=== PATIENT | female | born 2000 | race Caucasian/White ===

== ENCOUNTER 2024-07-18 00:05 | Inpatient (IN) ==
[2024-07-18 00:23] VITALS: BMI 36.6
[2024-07-18 00:42] LABS: BILIRUBIN,URINE NEGATIVE (NEGATIVE); BLOOD/HEMOGLOBIN,URINE 1+ (NEGATIVE); GLUCOSE, URINE NEGATIVE (NEGATIVE); KETONES,URINE NEGATIVE (NEGATIVE); LEUKOCYTE ESTERASE ,URINE NEGATIVE (NEGATIVE); NITRITES,URINE NEGATIVE (NEGATIVE); PH,URINE 6.5 (5.0 - 8.0); PROTEIN,URINE 3+ (NEGATIVE); UROBILINOGEN,URINE NORMAL (NORMAL)
[2024-07-18 00:49] LABS: APPEARANCE,URINE CLEAR (CLEAR); COLOR,URINE STRAW (YELLOW)
[2024-07-18 00:50] LABS: BACTERIA,URINE NEGATIVE /HPF (NEGATIVE); RBC,URINE 0-2 /HPF (0-3); SQUAMOUS EPITHELIAL CELL,UR RARE /HPF (NEGATIVE)
[2024-07-18 00:52] LABS: AMNISURE ROM TEST THERE IS A RUPTURE (NO RUPTURE)
[2024-07-18 01:22] LABS: BASOPHILS % (AUTO) 0.4 % (0.2-1.0); EOSINOPHILS # (AUTO) 0.1 x10^3/uL (0.0-0.2); EOSINOPHILS % (AUTO) 0.7 % (0.9-2.9); HEMATOCRIT 33.1 % (36.0-47.0); LYMPHOCYTES % (AUTO) 15.7 % (21.0-51.0); MEAN CORPUSCULAR HEMOGLOBIN 26.8 pg (27.0-34.0); MEAN CORPUSCULAR HGB CONC 33.3 g/dL (33.0-35.0); MEAN CORPUSCULAR VOLUME 80.5 fL (80.0-100.0); MEAN PLATELET VOLUME 9.4 fL (7.4-11.0); MONOCYTES # (AUTO) 0.7 x10^3/uL (0.3-0.8); MONOCYTES % (AUTO) 5.8 % (0.0-13.0); NEUTROPHILS # (AUTO) 9.8 x10^3/uL (2.2-4.8); NEUTROPHILS % (AUTO) 77.4 % (42.0-75.0); PLATELET COUNT 161 X10^3/uL (150.0-450.0); RED BLOOD COUNT 4.11 X10^6/uL (3.5-5.4); RED CELL DISTRIBUTION WIDTH 16.3 % (11.6-16.5); WHITE BLOOD COUNT 12.6 X10^3/uL (3.6-10.0)
[2024-07-18 01:37] LABS: ALANINE AMINOTRANSFERASE 7 Units/L (12-78); ALBUMIN 2.6 g/dL (3.4-5.0); ALKALINE PHOSPHATASE 151 Units/L (46-116); ASPARTATE AMINO TRANSFERASE 11 Units/L (15-37); BLOOD UREA NITROGEN 6 mg/dL (7-18); CALCIUM 9.1 mg/dL (8.5-10.1); CARBON DIOXIDE 23.6 mmol/L (21-32); CHLORIDE 104 mmol/L (98-107); COR CA(FOR HYPOALB) 10.2 mg/dL (8.5-10.1); CREATININE 0.68 mg/dL (0.55-1.02); GLUCOSE 95 mg/dL (65-99); POTASSIUM 3.6 mmol/L (3.5-5.1); SODIUM 137 mmol/L (136-145); TOTAL PROTEIN 6.7 g/dL (6.4-8.2); eGFR NON BLACK RACES > 60 (>60)
[2024-07-18] MEDS ORDERED: NUBAIN INJ 20 MG AMP IVP PRN (01:58)
[2024-07-18] MEDS ORDERED: REGLAN INJ 10 MG VIAL IVP PRN ×3 (01:58→10:20)
[2024-07-18] MEDS: AMPICILLIN VIAL 2 GRAM 2 G in NS 100 ML IV + SPIKE MINIBAG* 100 ML IV SCH (02:00)
[2024-07-18] MEDS: LR 1,000 ML IV 1,000 ML IV ONE ×3 (02:00→07:58)
[2024-07-18] MEDS: D5 1/2 NS 1,000 ML 1,000 ML IV SCH (02:00)
[2024-07-18] MEDS: NS 100 ML IV 100 ML ONE ×3 (02:00→18:49)
[2024-07-18] MEDS: NUBAIN INJ 10 MG AMP ONE (02:11)
[2024-07-18] MEDS: OXYTOCIN 20 UNIT/1,000 ML-NS 20 UNIT/1,000 ML PLAST..BAG IV PRN (02:15)
[2024-07-18 02:43] LABS: INR 1.07 (0.8-1.3)
[2024-07-18 02:50] LABS: URIC ACID 4.9 mg/dL (2.6-6.0)
[2024-07-18] MEDS: FENTANYL VIAL INJ 100 mcg ONE (02:55)
[2024-07-18] MEDS: AMPICILLIN VIAL 2 GRAM ONE (03:00)
[2024-07-18] MEDS: NAROPIN EPIDURAL 0.2% 100 ML ONE (03:01)
[2024-07-18] MEDS: D5 1/2 NS 1,000 ML 1,000 ML IV ONE (03:55)
[2024-07-18] MEDS: ZOFRAN INJ 4 MG VIAL IVP PRN (04:41)
[2024-07-18] MEDS: AMPICILLIN VIAL 1 GRAM 1 G in NS 50 ML IV + SPIKE MINIBAG* 50 ML IV SCH (06:30)
--- NOTE | 2024-07-18 07:23 | DR.OB ---
OB QUICK NOTE Assessment/Plan (1) Active labor at term: Assessment/Plan: L&D 07/18/24 Pitocin=20mu/min. Ampicillin S-No complaint. s/p epidural. O-Afebrile,VSS RGP=357 with poor LTV, +accel, occasional late decel. Some severe variables. CTX=q 1 1/2 min., about 25-45mmHg CVX=3cm/50%/-2/VTX (no change in 7 hours) A-IUP at 38 5/7 weeks with failure to dilate SROM PIH +GBS P-To C/S
[2024-07-18] MEDS: REGLAN INJ 10 MG VIAL ONE (07:34)
[2024-07-18] MEDS: ANCEF VIAL 1 GRAM ONE (07:58)
[2024-07-18] MEDS: LIDOCAINE 2%-EPI 1:200,000 ONE (07:58)
[2024-07-18] MEDS: PEPCID 20 MG VIAL ONE (07:58)
[2024-07-18] MEDS: DIPRIVAN VIAL 20 ML ONE (07:58)
[2024-07-18] MEDS ORDERED: DILAUDID INJ IVP PRN (08:20)
[2024-07-18] MEDS ORDERED: ZOFRAN INJ 4 MG VIAL IVP PRN ×2 (08:20→10:20)
[2024-07-18] MEDS ORDERED: BENADRYL INJ 50 MG VIAL IVP PRN ×2 (08:20→10:20)
[2024-07-18] MEDS ORDERED: BARHEMSYS INJ IVP PRN (08:20)
[2024-07-18] MEDS: PITOCIN IVP ONE (08:26)
[2024-07-18] MEDS: PITOCIN ONE (09:04)
[2024-07-18] MEDS: AMPICILLIN VIAL 1 GRAM ONE (09:05)
[2024-07-18] MEDS: ZOFRAN INJ 4 MG VIAL ONE ×2 (09:06→18:50)
[2024-07-18] MEDS ORDERED: NARCAN INJ IVP PRN (10:20)
[2024-07-18] MEDS: MYLICON TAB 80 MG CHEW PO PRN (10:55)
[2024-07-18] MEDS: PERCOCET TAB 5/325 MG PO PRN ×2 (10:55→17:13)
[2024-07-18] MEDS ORDERED: AMPICILLIN VIAL 1 GRAM 1 G in NS 50 ML IV 50 ML IV SCH (12:00)
[2024-07-18] MEDS: TORADOL 30 MG VIAL IVP PRN (13:33)
[2024-07-18] MEDS: LR 1,000 ML IV 1,000 ML IV SCH (18:48)
[2024-07-18] MEDS: OFIRMEV IV 1000 MG VIAL 1,000 MG/100 ML VIAL IV ONE (18:49)
[2024-07-18] MEDS: OXYTOCIN 20 UNIT/1,000 ML-NS 20 UNIT/1,000 ML PLAST..BAG IV SCH (18:50)
[2024-07-18] MEDS: TORADOL 30 MG VIAL ONE (18:50)
[2024-07-19 05:22] LABS: HEMATOCRIT 24.2 % (36.0-47.0)
[2024-07-19] MEDS: FERROUS GLUCONATE PO SCH (07:38)
[2024-07-19] MEDS: PRENATAL PLUS PO SCH (08:51)
[2024-07-19] MEDS: COLACE CAP 100 MG PO SCH (08:51)
[2024-07-19] MEDS: MOTRIN TAB 800 MG PO PRN (08:53)
[2024-07-19] MEDS: BACTROBAN TOPICAL OINT TOP SCH (13:46)
[2024-07-19] MEDS ORDERED: MILK OF MAGNESIA PO PRN (16:30)
[2024-07-19] MEDS: MILK OF MAGNESIA PO SCH (17:42)
[2024-07-20] MEDS: ADACEL or BOOSTRIX TDaP VACCINE IM ONE (06:39)
[2024-07-20 07:57] VITALS: BP 143/86; PULSE 89; TEMP 97; O2SAT 100
[2024-07-20 08:29] VITALS: RESP 17
== END 2024-07-20 10:55 | disposition home or self-care (01) | DRG 787 ==
LOC: ER 00:05 → LD 01:00 → MED/SURG 09:38
PROVIDERS: ADMIT Specialist; ATTEND Specialist
DX: B95.1 Streptococcus, group B, as the cause of diseases classified elsewhere; Z37.0 Single live birth; O98.82 Other maternal infectious and parasitic diseases complicating childbirth; O13.3 Gestational [pregnancy-induced] hypertension without significant proteinuria, third trimester; Z3A.38 38 weeks gestation of pregnancy; D50.8 Other iron deficiency anemias; O62.0 Primary inadequate contractions; O46.8X3 Other antepartum hemorrhage, third trimester; O99.013 Anemia complicating pregnancy, third trimester